=== PATIENT | male | born 1955 | race Caucasian/White ===

== ENCOUNTER 2018-08-17 18:53 | Emergency (ER) | payer OTHER, SELFPAY ==
--- NOTE | 2018-08-17 18:59 | DI.RAD.S_ITS ---
PROCEDURE: XR FINGER RT MIN 2V INDICATIONS: Nail through middle finger. TECHNIQUE: AP hand, 2 views of the third digit acquired. COMPARISON: None. FINDINGS: Bones: There is a metallic nail traversing the 3rd distal phalanx. No dislocation. Soft tissues: There is a penetrating wound through the radial aspect of the third distal phalanx with a metallic foreign body, with associated soft tissue swelling and soft tissue gas. IMPRESSION: 1. Penetrating injury of the third digit distally with associated penetrating fracture of the third distal phalanx. Dictated by: Dylan Nicholson M.D. on 08/17/2018 at 19:22 Approved by: Dylan Nicholson M.D. on 08/17/2018 at 19:27
[2018-08-17 19:00] VITALS: BP 189/94; PULSE 49; RESP 18; TEMP 36.9; O2SAT 97; BMI 25.7
--- NOTE | 2018-08-17 19:06 | PC.NURSE ---
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 arrived with right hand with glove,nail,thru middle finger, no blood noted at this time,+distal cms intact.
--- NOTE | 2018-08-17 19:10 | ED_ITS ---
HPI - Extremity Injury (Upper) <SEAN Chaparro - Last Filed: 08/17/18 21:33> General Chief Complaint: Extremity Injury, Upper Stated Complaint: NAIL IN RT MIDDLE FINGER Time Seen by Provider: 08/17/18 18:56 Source: patient Mode of arrival: ambulatory Limitations: no limitations History of Present Illness HPI narrative: 62-year-old healthy male presents emergency department today for complaint of a steel nail that was shot with a nail gun through the first knuckle of his right long/middle finger few minutes ago while framing. Patient states no bleeding occurred, complains of 6/10 dull aching pain that is worse when the nail is touched with associated swelling. Denies numbness, tingling, weakness, hand pain, syncope, chest pain, shortness of breath, or recent illness. Patient states that his tetanus is not up-to-date. complaint: injury to: right Onset (ago): hour(s) Place: home and work Severity: moderate Severity scale (1-10): 6 Relieving factors: rest Exacerbating factors: movement of extremity Context: other Associated symptoms: denies other symptoms Related Data Previous Rx's Medication Instructions Recorded cephalexin 500 mg PO QID 5 Days #20 cap 08/17/18 Allergies Allergy/AdvReac Type Severity Reaction Status Date / Time No Known Drug Allergies Allergy Verified 08/17/18 19:00 Review of Systems <SEAN Chaparro - Last Filed: 08/17/18 21:33> Review of Systems REVIEW OF SYSTEMS: GENERAL: Denies fever or chills. HENT: No head trauma. EYES: No loss of vision, double vision, eye pain, or irritation. CARDIOVASCULAR: No chest pain or syncope. RESPIRATORY: No shortness of breath or cough. GASTROINTESTINAL: No nausea, vomiting, diarrhea, or constipation. MUSCULOSKELETAL: Complaints of finger pain, see HPI. INTEGUMENTARY: Complains of puncture wound, see HPI. NEURO: See HPI, no numbness. PSYCH: No behavior or mood changes. PFSH <SEAN Chaparro - Last Filed: 08/17/18 21:33> Medical History No significant medical problems (Acute) Social History Smoking Status: Never smoker Social History Smoking Status: Never smoker Exam <SEAN Chaparro - Last Filed: 08/17/18 21:33> Initial Vital Signs Initial Vital Signs: Vital Signs Temperature 98.4 F 08/17/18 19:00 Pulse Rate 49 L 08/17/18 19:00 Respiratory Rate 18 08/17/18 19:00 Blood Pressure 189/94 H 08/17/18 19:00 Pulse Oximetry 97 08/17/18 19:00 PHYSICAL EXAMINATION: GENERAL: Well groomed, alert, and cooperative Answers questions promptly and appropriately. HENT: Normocephalic, atraumatic. EYES: Conjunctiva pink, sclera white, no periorbital swelling. RESPIRATORY: Normal respiratory rate, trachea midline, airway patent. No stridor, nasal flaring or accessory muscle use. MUSCULOSKELETAL: Normal gait and coordination. Equal tone and mass bilaterally. EXTREMITIES: 8 cm steal nail penetrating through right long finger around pip joint which pierced through patient's glove. Both the top and the bottom of the nail are present, about 2 cm of the bottom of the nail is sticking out from the finger and about about 6 cm of the top of the nail sticking out from the finger. No bleeding present. Patient able to move all fingers. Light touch sensation intact at the tip of the finger and proximal aspects of fingers and hand. Patient able to open and close hand. Radial pulses 2+ bilaterally. Once the nail was removed is 0.5 puncture wound was present on the radial aspect finger and a 0.25 cm puncture wound was present on the ulnar aspect, small of bleeding occurred after of removal foreign body. Patient was able to flex finger at the PIP joint. Cap refill less than 2 seconds. SKIN: Warm, dry, soft, appropriate color for ethnicity. NEURO: Alert and Oriented X 3. Good coordination. No ataxia, or sensory deficits, or cognitive issues. PSYCH: Appropriate affect and mood. <Mitchel Cruz DO - Last Filed: 08/17/18 22:22> Initial Vital Signs Initial Vital Signs: Vital Signs Temperature 98.4 F 08/17/18 19:00 Pulse Rate 49 L 08/17/18 19:00 Respiratory Rate 18 08/17/18 19:00 Blood Pressure 189/94 H 08/17/18 19:00 Pulse Oximetry 97 08/17/18 19:00 Procedures <SEAN Chaparro - Last Filed: 08/17/18 21:33> Foreign Body OTHER Time Out Performed: yes Site: right and hand (long/3rd finger) Description of foreign body: other (Steal nail) Sedation/Analgesia: other (6ml of Lido 1% with bicarb) Technique: manual removal Confirmed by:: direct visualization and radiograph Complications: none Post-procedure exam: awake, alert Neurovascular: normal capillary fill Course <SEAN Chaparro - Last Filed: 08/17/18 21:33> Course Narrative: Post foreign body removal x-ray was taken to ensure bone was not damaged as it was hard to visualize due to the large foreign body on the 1st x-ray. Orders Ordered: ED Orders 08/17/18 18:59 XR finger RT min 2V Stat 08/17/18 19:32 XR finger RT min 2V Stat Discontinued Medications Cephalexin HCl (Keflex) 500 mg PO NOW ONE Stop: 08/17/18 19:36 Last Admin: 08/17/18 19:49 Dose: 500 mg Diphtheria/Tetanus/Acell Pertussis (Adacel) 0.5 ml IM .ONCE ONE Stop: 08/17/18 19:02 Last Admin: 08/17/18 19:23 Dose: 0.5 ml Oxycodone/Acetaminophen (Percocet 5/325) 1 tab PO NOW ONE Stop: 08/17/18 19:02 Last Admin: 08/17/18 19:22 Dose: 1 tab Reevaluation(s) Reevaluation #1: After foreign body removal, pain medication, and a nerve block patient states that his pain is feeling much better. Consultations Consultation #1: Patient staffed with Dr. Cruz Vital Signs - 8 hr 08/17/18 19:00 08/17/18 20:00 Temperature 98.4 F Pulse Rate 49 L 49 L Respiratory Rate 18 18 Blood Pressure 189/94 H Blood Pressure [Right Arm] 139/78 Pulse Oximetry 97 97 <Mitchel Cruz DO - Last Filed: 08/17/18 22:22> Orders Ordered: ED Orders 08/17/18 18:59 XR finger RT min 2V Stat 08/17/18 19:32 XR finger RT min 2V Stat Discontinued Medications Cephalexin HCl (Keflex) 500 mg PO NOW ONE Stop: 08/17/18 19:36 Last Admin: 08/17/18 19:49 Dose: 500 mg Diphtheria/Tetanus/Acell Pertussis (Adacel) 0.5 ml IM .ONCE ONE Stop: 08/17/18 19:02 Last Admin: 08/17/18 19:23 Dose: 0.5 ml Oxycodone/Acetaminophen (Percocet 5/325) 1 tab PO NOW ONE Stop: 08/17/18 19:02 Last Admin: 08/17/18 19:22 Dose: 1 tab Vital Signs - 8 hr 08/17/18 19:00 08/17/18 20:00 Temperature 98.4 F Pulse Rate 49 L 49 L Respiratory Rate 18 18 Blood Pressure 189/94 H Blood Pressure [Right Arm] 139/78 Pulse Oximetry 97 97 MDM - Extremity Injury (Upper) <SEAN Chaparro - Last Filed: 08/17/18 21:33> Medical Records Attestation: I reviewed the patient's medical records. Lab Data Attestation: I reviewed the patient's lab results. Imaging Data 1st Right fingers w/foreign body: Radiologist's impression: [place] [address] XRay Report Signed Patient: Mitchel Newman#: [id number] : 8Acct:[id number] Age/Sex: 62 / MDate of Service: 08/17/18 Loc: ED Accession Number: [id number] Procedure: XR finger RT min 2V Ordering Provider: Delmy June PROCEDURE: XR FINGER RT MIN 2V INDICATIONS: Nail through middle finger. TECHNIQUE: AP hand, 2 views of the third digit acquired. COMPARISON: None. FINDINGS: Bones: There is a metallic nail traversing the 3rd distal phalanx. No dislocation. Soft tissues: There is a penetrating wound through the radial aspect of the third distal phalanx with a metallic foreign body, with associated soft tissue swelling and soft tissue gas. IMPRESSION: 1. Penetrating injury of the third digit distally with associated penetrating fracture of the third distal phalanx. Dictated by: Dylan Nicholson M.D. on 08/17/2018 at 19:22 Approved by: Dylan Nicholson M.D. on 08/17/2018 at 19:27 Post foreign body removal : Radiologist's impression: [address] [address] XRay Report Signed Patient: Mitchel Newman#: [id number] : 8Acct:[id number] Age/Sex: 62 / MDate of Service: 08/17/18 Loc: ED Accession Number: [id number] Procedure: XR finger RT min 2V Ordering Provider: Delmy June PROCEDURE: XR FINGER RT MIN 2V INDICATIONS: Repeat after foreign body removal TECHNIQUE: AP hand, lateral view of the 3rd digit acquired. COMPARISON: [facility], CR, XR FINGER RT MIN 2V, 08/17/2018, 19:03. FINDINGS: Bones: No fractures or dislocations. No suspicious bony lesions. Soft tissues: There is interval removal of the foreign body. There is a soft tissue laceration within the radial aspect of the 3rd digit distally. No residual radiopaque foreign body. IMPRESSION: 1. No fracture or dislocation. 2. No residual radiopaque foreign body. Dictated by: Dylan Nicholson M.D. on 08/17/2018 at 20:32 Approved by: Dylan Nicholson M.D. on 08/17/2018 at 20:33 MDM Narrative Medical decision making narrative: Less likely bone involvement due pre and post x-ray showing no fractures. Visible foreign body was removed after nerve block. Irrigated extensively with normal saline and chlorhexidine. Antibiotics were given prophylactically due to puncture wound and foreign body penetrated through the entire finger. Strict return precautions given in follow-up instructions discussed. Discharge Plan Departure Patient Disposition: Home Clinical Impression: Foreign body (FB) in soft tissue Discharge Date/Time: 08/17/18 20:50 Interventions: ED Discharge Assessment Last Done: 08/17/18 20:42 Instructions: DI for Removal of Foreign Body From Skin Activity Restrictions/Additional Instructions: Thank you for entrusting me with your care today. As discussed, the nail did not injury your bone. Your wound was left open to continue to drain and prevent infection. Prescribed you antibiotics, we have given you your 1st dose this evening. Please continue to take these until they are gone in order to prevent infection. Leave the dressing in place for 24 hours, after that you may remove it and gently wound. Do not soak your wound. Follow up with a primary care provider in the next week if needed. Return to the emergency department or urgent care for signs if signs of infection develop such as pus from the wound, increasing redness, fever, chills, and/or uncontrollable vomiting. Prescriptions: New cephalexin 500 mg capsule 500 mg PO QID 5 Days Qty: 20 RF: 0 <Mitchel Cruz DO - Last Filed: 08/17/18 22:22> Cosign ED Attending Rj Attestation: I was available for consultation during this patient's emergency department encounter
[2018-08-17] MEDS: OXYCODONE/ACETAMINOPHEN 5/325 TABLET 1 TAB PO (19:22)
[2018-08-17] MEDS: TET,DIPH,PERTUSS(ACELL),VAC/PF 0.5 ML SYRINGE IM (19:23)
--- NOTE | 2018-08-17 19:32 | DI.RAD.S_ITS ---
PROCEDURE: XR FINGER RT MIN 2V INDICATIONS: Repeat after foreign body removal TECHNIQUE: AP hand, lateral view of the 3rd digit acquired. COMPARISON: [facility], CR, XR FINGER RT MIN 2V, 08/17/2018, 19:03. FINDINGS: Bones: No fractures or dislocations. No suspicious bony lesions. Soft tissues: There is interval removal of the foreign body. There is a soft tissue laceration within the radial aspect of the 3rd digit distally. No residual radiopaque foreign body. IMPRESSION: 1. No fracture or dislocation. 2. No residual radiopaque foreign body. Dictated by: Dylan Nicholson M.D. on 08/17/2018 at 20:32 Approved by: Dylan Nicholson M.D. on 08/17/2018 at 20:33
--- NOTE | 2018-08-17 19:45 | PC.NURSE ---
Nail removed, finger soaking in soapy water per Shaylee ANTHONY.
[2018-08-17] MEDS: cephALEXin 250 MG CAPSULE 500 MG PO (19:49)
[2018-08-17 20:00] VITALS: BP 139/78; PULSE 49; RESP 18; O2SAT 97
== END 2018-08-17 20:50 | disposition home or self-care (01) ==
PROVIDERS: Emergency Provider Nurse Practitioner
DX: M79.5 Residual foreign body in soft tissue (principal); W45.0XXA Nail entering through skin, initial encounter; W29.4XXA Contact with nail gun, initial encounter; Z23 Encounter for immunization
CPT/HCPCS: 20520; 73140; 90471; 99282; 99283; 90715

== ENCOUNTER 2021-06-10 13:55 | Emergency (ER) | payer OTHER, SELFPAY ==
[2021-06-10] VITALS (7 sets, daily range): BP systolic 160–189; BP diastolic 76–89; PULSE 37–49; RESP 14–16; TEMP 36.9; O2SAT 96–99
--- NOTE | 2021-06-10 14:10 | PC.NURSE ---
requested medical records from [facility] by fax. sd
--- NOTE | 2021-06-10 14:26 | ED.HA ---
HPI - Headache General Chief Complaint: Headache Stated Complaint: headaches x1yr. worsening last two days Time Seen by Provider: 06/10/21 14:24 Mode of arrival: Ambulatory History of Present Illness HPI Narrative: 65-year-old male nonsmoker with extensive history of headaches presents for evaluation of a severe headache last night. He frequently has headaches multiple times per day which generally come on gradually and are largely right frontal. This headache come on similar to typical and in the same distribution. She denies any obvious radiation and states that his headache is made worse by bright lights which is typical for him. He denies any recent trauma or injury, he has no neck pain and takes no blood thinners. He denies other neurologic symptoms such as numbness, tingling, weakness or other stroke-like symptoms. He had extensive workup a few years ago including an MRI an outside facility without any significant findings. His typical regimen is Aleve. He denies any changes diet or medications Related Data Previous Rx's Medication Instructions Recorded ketorolac 10 mg tablet 10 mg PO Q6H PRN #14 tab 06/10/21 ondansetron 4 mg disintegrating 4 mg PO TID-QID PRN #10 tab 06/10/21 tablet Allergies Allergy/AdvReac Type Severity Reaction Status Date / Time No Known Drug Allergies Allergy Verified 08/17/18 19:00 Review of Systems Review of Systems Narrative: GENERAL: Denies chills, fatigue, malaise, fever, sweats. HEENT: Denies sinus pain, ear pain, sore throat, difficulty swallowing, dizziness. RESPIRATORY: Denies dyspnea, cough, wheezing, hemoptysis, sputum. CARDIOVASCULAR: Denies chest pain, palpitations, orthopnea, edema, GASTROINTESTINAL: Denies nausea, vomiting, abdominal pain, diarrhea, constipation, melena. : Denies dysuria, frequency, incontinence, hematuria, urinary retention. MUSCULOSKELETAL: denies weakness, joint pain, or bony pain SKIN: Denies rash, skin lesions, or other NEUROLOGIC: See HPI PSYCHIATRIC: No concerning psychosocial issues. 12 point review of systems is negative except for those stated above Patient History Medical History (Updated 06/10/21 @ 16:43 by Aditya Becerril DO) No significant medical problems Social History Smoking Status: Never smoker Smoking Status: Never smoker alcohol intake frequency: a few times a month Substance Use Type: does not use Exam Narrative Exam Narrative: GENERAL: [65] year old patient appears stated age. Well-developed patient, in mild distress. Appears uncomfortable, sitting in a dark room, slightly squinting eyes HEAD: Atraumatic. Normocephalic. EYES: Pupils equal round and reactive. Extraocular motions intact. No scleral icterus. No injection or drainage. ENT: Nose without bleeding, purulent drainage. Throat without erythema, tonsillar hypertrophy or exudate. Airway patent. NECK: Trachea midline. Non tender CARDIOVASCULAR: Regular rate and rhythm without murmurs, gallops, or rubs. RESPIRATORY: Clear to auscultation. Breath sounds equal bilaterally. No wheezes, rales, or rhonchi. GASTROINTESTINAL: Abdomen soft, non-tender, nondistended. EXTREMITIES: No edema or joint tenderness. BACK: Nontender without deformity or crepitance. No flank tenderness. NEURO: AOx3. SKIN: No rash or erythema of visible areas NIH Stroke Scale 1a. LOC: Patient is alert and keenly responsive (0) 1b. LOC Questions: Patient answers both LOC questions accurately (0) 1c. LOC Commands: Patient performs both tasks correctly (0) 2. Best Gaze: Normal (0) 3. Visual: No visual loss (0) 4. Facial palsy: Normal symmetrical movements (0) 5. Motor arm: No drift (0) 6. Motor leg: No drift (0) 7. Limb ataxia: Absent (0) 8. Sensory: Normal (0) 9. Best language: No aphasia; normal (0) 10. Dysarthria: Normal (0) 11. Extinction and inattention: No abnormality (0) NIHSS: 0 Initial Vital Signs Initial Vital Signs: Vital Signs Temperature 98.5 F 06/10/21 14:00 Pulse Rate 49 L 06/10/21 14:00 Respiratory Rate 16 06/10/21 14:00 Blood Pressure 189/89 H 06/10/21 14:00 Pulse Oximetry 99 06/10/21 14:00 Course Orders Ordered: ED Orders 06/10/21 14:35 CT head/brain wo con Stat 06/10/21 14:55 Complete Blood Count AUTO DIFF Stat Comprehensive Metabolic Panel Stat 06/10/21 15:17 EKG-12 Lead Stat Discontinued Medications Dexamethasone (Dexamethasone 10 Mg/Ml Vial) 10 mg IV NOW ONE Stop: 06/10/21 14:36 Last Admin: 06/10/21 15:11 Dose: 10 mg Documented by: HEATH Diphenhydramine HCl (Diphenhydramine 50 Mg/Ml Vial) 25 mg IV NOW ONE Stop: 06/10/21 14:36 Last Admin: 06/10/21 15:08 Dose: 25 mg Documented by: HEATH Sodium Chloride (Normal Saline 0.9%) 1,000 mls @ 1,000 mls/hr IV BOLUS ONE Stop: 06/10/21 15:34 Last Infusion: 06/10/21 16:50 Dose: 0 mls/hr Documented by: Admin: 06/10/21 15:03 Dose: 1,000 mls/hr Documented by: HEATH Ketorolac Tromethamine (Ketorolac 30 Mg/Ml Vial) 15 mg IV NOW ONE Stop: 06/10/21 14:36 Last Admin: 06/10/21 15:15 Dose: 15 mg Documented by: HEATH Metoclopramide HCl (Metoclopramide 10 Mg/2 Ml Inj) 10 mg IV NOW ONE Stop: 06/10/21 14:36 Last Admin: 06/10/21 15:03 Dose: 10 mg Documented by: HEATH Vital Signs Vital signs: Vital Signs - 8 hr 06/10/21 14:00 06/10/21 15:16 06/10/21 15:30 Temperature 98.5 F Pulse Rate 49 L 37 L 38 L Respiratory Rate 16 15 16 Blood Pressure 189/89 H 177/77 H Pulse Oximetry 99 98 99 06/10/21 16:00 06/10/21 16:01 06/10/21 16:30 Temperature Pulse Rate 39 L 37 L 48 L Respiratory Rate 14 15 16 Blood Pressure 177/81 H Pulse Oximetry 97 98 96 06/10/21 16:31 Temperature Pulse Rate 42 L Respiratory Rate 16 Blood Pressure 160/76 H Pulse Oximetry 97 MDM - Headache Lab Data Result diagrams: 06/10/21 14:55 06/10/21 14:55 Labs: Lab Results 06/10/21 06/10/21 Range/Units 14:55 14:55 WBC 6.7 (4.5-11.0) X10^3/uL RBC 4.75 (4.5-5.9) X10^6/uL Hgb 15.3 (13.5-17.5) g/dL Hct 45.9 (41-53) % MCV 96.5 (80-100) fL MCH 32.1 (26-34) PG MCHC 33.3 (30-36) % RDW 14.4 (11.6-14.8) % Plt Count 249 (150-400) X10^3/uL Neut % (Auto) 72.0 (50-75) % Lymph % (Auto) 18.4 L (25-40) % [place] % (Auto) 8.4 (3-14) % Eos % (Auto) 0.7 L (2-4) % Baso % (Auto) 0.5 (0-2) % Neut # (Auto) 4900 (0112-0802) /uL Lymph # (Auto) 1200 (6008-8297) /uL [place] # (Auto) 600 (0-900) /uL Eos # (Auto) 0 (0-450) /uL Baso # (Auto) 0 (0-100) /uL Sodium 138 (137-145) mmol/L Potassium 4.4 (3.4-5.1) mmol/L Chloride 103 (98-107) mmol/L Carbon Dioxide 27 (22-32) mmol/L BUN 20 (9-20) mg/dL Creatinine 0.92 (0.66-1.25) mg/dL Estimated GFR > 60.0 (>60) mL/min BUN/Creatinine Ratio 21.7 (6-22) Glucose 81 (80-110) mg/dL Calcium 8.9 (8.4-10.2) mg/dL Total Bilirubin 1.1 (0.2-1.3) mg/dL AST 39 (17-59) IU/L ALT 29 (<50) IU/L Alkaline Phosphatase 41 (38-126) U/L Total Protein 6.6 (6.3-8.2) g/dL Albumin 3.9 (3.5-5.0) g/dL Globulin 2.7 (1.7-4.1) g/dL Albumin/Globulin Ratio 1.4 (1.0-2.8) Point of Care Testing Glucose POC [address] scan - head: Radiologist's Impression: [address] [place] [address] CT Scan Report Signed Patient: Mitchel Newman MR#: [id number] : 1955 Acct:[id number] Age/Sex: 65 / M Date of Service: 06/10/21 Loc: ED Accession Number: [id number] ?? Procedure: CT head/brain wo con Ordering Provider: Aditya Becerril D.O. PROCEDURE:? CT HEAD/BRAIN WO CON ? INDICATIONS:? worst headache ? TECHNIQUE:? Noncontrast 5 mm thick angled axial sections acquired from the foramen magnum to the vertex, with coronal and sagittal reformats.? For radiation dose reduction, the following was used:? automated exposure control, adjustment of mA and/or kV according to patient size.? ? COMPARISON:? None. ? FINDINGS:? Image quality:? Excellent.? ? CSF spaces:? Basal cisterns are patent.? No extra-axial fluid collections.? Ventricles are normal in size and shape.? ? Brain:? No midline shift.? No intracranial masses or hemorrhage.? Alegre-white matter interface is normal.? ? Skull and face:? Calvarium and visualized facial bones are intact, without suspicious lesions.? ? Sinuses:? Visualized sinuses and mastoids are clear.? ? IMPRESSION:? Normal CT brain.? No intracranial hemorrhage or mass effect. ? ? ? Approved by: Ric Angeles M.D. on 06/10/2021 at 14:44? MDM Narrative Medical decision making narrative: Headache considerations include, but not limited to: Subarachnoid hemorrhage, but unlikely as patient denies sudden onset of pain, not worst of life, or neck pain Meningitis considered, but thought unlikely given lack of Brudzinski's, Kernig's sign, altered mental status or fever Giant cell arteritis considered, but thought unlikely given lack of unilateral findings, pain in samaritan, vision change HTN Emergency considered, but thought unlikely given normal vitals Other serious diagnoses considered unlikely given lack of red flag findings such as sudden onset, increasing frequency, immunocompromise, systemic signs (fever, chills, stiff neck, or rash), focal neurologic findings, trauma, blood thinners, etc. Patient's symptoms improved over duration of stay with above-stated therapies. Findings and discharge diagnosis discussed with patient/family followed by verbalization of understanding Return precautions discussed with patient/family whom verbalize understanding. Discharge Plan Departure Patient Disposition: Home Clinical Impression: Headache, Migraine Instructions: DI for Migraine Activity Restrictions/Additional Instructions: *You have been diagnosed with [ Headache ] *What to do: *Take medications as directed *Follow up with your primary care provider in 2-3 days, call for an appointment. Let them know you were seen in the Emergency Department and that we ask that you be seen in follow up *Return to ER if you should have any new, worsening or concerning symptoms, such as [ fever > 101F, neck pain or stiffness, vomiting, confusion, seizure, focal weakness, vision change, speech deficit or other concerning symptoms ] Prescriptions: New ketorolac 10 mg tablet 10 mg PO Q6H PRN (Reason: pain) Qty: 14 0RF ondansetron 4 mg tablet,disintegrating 4 mg PO TID-QID PRN (Reason: nausea and vomiting) Qty: 10 0RF
--- NOTE | 2021-06-10 14:35 | DI.CT.S_ITS ---
PROCEDURE: CT HEAD/BRAIN WO CON INDICATIONS: worst headache TECHNIQUE: Noncontrast 5 mm thick angled axial sections acquired from the foramen magnum to the vertex, with coronal and sagittal reformats. For radiation dose reduction, the following was used: automated exposure control, adjustment of mA and/or kV according to patient size. COMPARISON: None. FINDINGS: Image quality: Excellent. CSF spaces: Basal cisterns are patent. No extra-axial fluid collections. Ventricles are normal in size and shape. Brain: No midline shift. No intracranial masses or hemorrhage. Alegre-white matter interface is normal. Skull and face: Calvarium and visualized facial bones are intact, without suspicious lesions. Sinuses: Visualized sinuses and mastoids are clear. IMPRESSION: Normal CT brain. No intracranial hemorrhage or mass effect. Approved by: Ric Angeles M.D. on 06/10/2021 at 14:44
[2021-06-10] MEDS: METOCLOPRAMIDE 10 MG/2 ML INJ IV (15:03)
[2021-06-10] MEDS: SODIUM CHLORIDE 0.9% 1,000 ML 1000 ML IV (15:03)
[2021-06-10] MEDS: diphenhydrAMINE 50 MG/ML VIAL 25 MG IV (15:08)
[2021-06-10] MEDS: DEXAMETHASONE 10 MG/ML VIAL IV (15:11)
[2021-06-10] MEDS: KETOROLAC 30 MG/ML VIAL 15 MG IV (15:15)
[2021-06-10 15:41] LABS: Add Manual Diff / Slide Review NO; Basophils Absolute Auto 0 /uL (0-100); Basophils Percent Auto 0.5 % (0-2); Eosinophils Absolute Auto 0 /uL (0-450); Eosinophils Percent Auto 0.7 % (2-4); Hematocrit 45.9 % (41-53); Hemoglobin 15.3 g/dL (13.5-17.5); Lymphocytes Absolute Auto 1200 /uL (1100-4500); Lymphocytes Percent Auto 18.4 % (25-40); Mean Corpuscular HGB Conc 33.3 % (30-36); Mean Corpuscular Hemoglobin 32.1 PG (26-34); Mean Corpuscular Volume 96.5 fL (80-100); Monocytes Absolute Auto 600 /uL (0-900); Monocytes Percent Auto 8.4 % (3-14); Neutrophils Absolute Auto 4900 /uL (1500-7000); Platelet Count 249 X10^3/uL (150-400); Red Blood Cell Count 4.75 X10^6/uL (4.5-5.9); Red Cell Distribution Width 14.4 % (11.6-14.8); White Blood Cell Count 6.7 X10^3/uL (4.5-11.0)
[2021-06-10 16:38] LABS: Alanine Aminotransferase 29 IU/L (<50); Albumin 3.9 g/dL (3.5-5.0); Albumin Globulin Ratio 1.4 (1.0-2.8); Alkaline Phosphatase 41 U/L (38-126); Aspartate Aminotransferase 39 IU/L (17-59); BUN Creatinine Ratio 21.7 (6-22); Bilirubin Total 1.1 mg/dL (0.2-1.3); Blood Urea Nitrogen 20 mg/dL (9-20); Calcium 8.9 mg/dL (8.4-10.2); Carbon Dioxide 27 mmol/L (22-32); Chloride 103 mmol/L (98-107); Estimated Glomerular Filt Rate > 60.0 mL/min (>60); Globulin 2.7 g/dL (1.7-4.1); Glucose 81 mg/dL (80-110); HEMOLYSIS 27 (0-50); Potassium 4.4 mmol/L (3.4-5.1); Sodium 138 mmol/L (137-145); Total Protein 6.6 g/dL (6.3-8.2)
== END 2021-06-10 16:54 | disposition home or self-care (01) ==
PROVIDERS: Emergency Provider Emergency Medicine
DX: G43.909 Migraine, unspecified, not intractable, without status migrainosus (principal)
CPT/HCPCS: 36415; 70450; 80053; 82962; 85025; 93005; 93010; 96361; 96374; 96375; 99284; J1100; J1200; J1885; J2765